=== PATIENT | male | born 1970 | race American Indian/Alaskan Native ===

== ENCOUNTER 2016-06-08 19:26 | Emergency (ER) | payer OTHER ==
[2016-06-08 22:24] VITALS: BP 155/96
[2016-06-08] MEDS ORDERED: XYLOCAINE 1% MPF 5 mL INFILTRATI ONE (23:31)
[2016-06-08] MEDS ORDERED: ZITHROMAX PO ONE (23:31)
[2016-06-08] MEDS ORDERED: ROCEPHIN IM ONE (23:31)
--- NOTE | 2016-06-08 23:36 | Emergency Department Report ---
ED Dysuria HPI - HPI Chief Complaint: Urogenital-Male Stated Complaint: DISCHARGE Time Seen by Provider: 06/08/16 22:36 Duration: 2 Days Location of Discomfort: Urethra (dysuria) Severity: Mild Symptoms: Dysuria: Yes, Frequency: No, Suprapubic Pain: No, Flank Pain: No, Fever: No, Hematuria: No, Abdominal Pain: No, Previous UTI's: Yes Other History: Creamy penile discharge ED Review of Systems ROS: Stated complaint: DISCHARGE Other details as noted in HPI Constitutional: denies: fever Cardiovascular: denies: chest pain, dyspnea on exertion Gastrointestinal: denies: abdominal pain, nausea, vomiting Genitourinary: dysuria, discharge. denies: urgency, frequency, hematuria, testicular pain, testicular mass Skin: denies: rash, lesions ED Past Medical Hx - Past Medical History Previous Medical History?: No - Surgical History Past Surgical History?: No - Social History Smoking Status: Never Smoker Substance Use Type: None - Medications Home Medications: Home Medications Medication Instructions Recorded Confirmed Last Taken Type Sulfamethoxazole/Trimethoprim 1 each PO BID #20 tablet 06/09/16 Unknown Rx [Bactrim DS TAB] Dysuria Exam - Exam General: Vital signs noted. No distress. Alert and acting appropriately. Exam: Yes Moist Mucous Membranes, No CVA Tenderness, No Abdominal Tenderness, No Rigidity or Guarding Exam: : Penile discharge, yellow crusting, no other lesions, masses, or scrotal swelling ED Course Vital Signs 06/08/16 06/08/16 19:35 22:23 Temperature 98.5 F 98.4 F Pulse Rate 79 70 Respiratory 18 18 Rate Blood Pressure 152/98 Blood Pressure 155/96 [Left] O2 Sat by Pulse 100 99 Oximetry ED Medical Decision Making - Medical Decision Making Will treat for gonorrhea and chlamydia with ceftriaxone 250mg IM and azithromycin 1gm PO. Pt has had chlamydia in the past and has unprotected sex. Pt reports he did reach out to the woman and she reports negative symptoms and was "checked" and found to have no STI. Counseled the patient on protection. Pt understood Critical care attestation.: If time is entered above; I have spent that time in minutes in the direct care of this critically ill patient, excluding procedure time. ED Disposition Clinical Impression: UTI (urinary tract infection) with pyuria, Possible exposure to STD Disposition: DISCHARGED TO HOME OR SELFCARE Is pt being admited?: No Does the pt Need Aspirin: No Condition: Stable Instructions: Urinary Tract Infection in Men (ED), Sexually Transmitted Diseases (ED) Prescriptions: Sulfamethoxazole/Trimethoprim [Bactrim DS TAB] 1 each PO BID #20 tablet Referrals: MAURO BERRIOS MD [Primary Care Provider] - 3-5 Days
[2016-06-09 00:48] LABS: Bacteria,Urine 2+ /HPF (Negative); Bilirubin,Urine NEG (Negative); Blood,Urine MOD (Negative); Ketones,Urine NEG (Negative); Leukocyte Esterase,Urine LG (Negative); Nitrite,Urine NEG (Negative); Protein,Urine <15 mg/dL mg/dL (Negative); Urobilinogen,Urine < 2.0 mg/dL (<2.0); WBC,Urine > 182.0 /HPF (0.0-6.0)
== END 2016-06-09 01:17 | disposition home or self-care (01) ==
LOC: ED 19:26
DX: N39.0 Urinary tract infection, site not specified (principal)
CPT/HCPCS: 81001; 87591; 96372; 99283; J0696